=== PATIENT | male | born 1990 | race Two or more races ===

== ENCOUNTER 2022-12-31 01:38 | Emergency (ER) | payer OTHER ==
[~2022-12-31] VITALS: Ht 177.8 cm; Wt 97.5 kg
[2022-12-31 01:44] VITALS: BP 128/69; TEMP 98
[2022-12-31 02:17] VITALS: O2SAT 98
== END 2022-12-31 02:18 | disposition home or self-care (01) ==
LOC: ER 01:40
DX: F19.90 Other psychoactive substance use, unspecified, uncomplicated (principal); Z59.00 Homelessness unspecified

== ENCOUNTER 2024-10-22 03:30 | Emergency (ER) | payer OTHER ==
[~2024-10-22] VITALS: Ht 175.3 cm; Wt 90.7 kg
[2024-10-22 04:41] LABS: PLATELET COUNT (AUTO) 198 K/uL (150-450); RED BLOOD CELL COUNT(AUTO) 4.77 MIL/uL (4.5-6.0); RED CELL DISTRIBUTION WIDTH 18.6 % (11.5-15.0); WHITE BLOOD COUNT (AUTO) 16.7 K/uL (4.3-11.0)
[2024-10-22 04:42] LABS: APPEARANCE,URINE SLIGHTLY CLOUDY (CLEAR); BLOOD, URINE 3+ Ery/uL (NEGATIVE); LEUKOCYTE ESTERASE ,URINE 2+ (NEGATIVE); NITRITE, URINE NEGATIVE (NEGATIVE); UGLUCOSE NEGATIVE (NEGATIVE)
[2024-10-22 04:47] LABS: CALCIUM, SERUM 8.6 mg/dL (8.5-10.1); CREATININE 0.8 mg/dL (0.6-1.3); SODIUM SERUM 138 mmol/L (136-145); UREA NITROGEN, BLOOD 8 mg/dL (7-18)
[2024-10-22 04:52] LABS: ALCOHOL, BLOOD < 3 mg/dL (0-10); ASPARTATE AMINOTRANSFERASE 22 U/L (15-37); TOTAL PROTEIN, SERUM 7.8 g/dL (6.4-8.2)
[2024-10-22 04:56] LABS: BARBITURATE, URINE NEGATIVE (NEGATIVE); BENZODIAZEPINE, URINE NEGATIVE (NEGATIVE); CANNABINOID, URINE NEGATIVE (NEGATIVE); COCCAINE, URINE NEGATIVE (NEGATIVE); OPIATE, URINE NEGATIVE (NEGATIVE)
[2024-10-22 04:57] LABS: AMPHETAMINE, URINE POSITIVE (NEGATIVE)
[2024-10-22 05:06] LABS: ADD URINE CULTURE YES
[2024-10-22] MEDS ORDERED: POTASSIUM CHLORIDE 20 MEQ TAB.PRT.SR PO ONE (06:01)
[2024-10-22] MEDS ORDERED: CIPROFLOXACIN HCL 500 MG TABLET ONE (06:01)
[2024-10-22] MEDS: CIPROFLOXACIN HCL 500 MG TABLET PO ONE (06:05)
[2024-10-22] MEDS: POTASSIUM CHLORIDE 20 MEQ TAB.PRT.SR PO ONE (06:05)
[2024-10-22] MEDS ORDERED: OLANZAPINE 5 MG TABLET ONE (07:13)
[2024-10-22] MEDS: OLANZAPINE 5 MG TABLET PO ONE (07:16)
[2024-10-22] MEDS ORDERED: DOXY100C2 PO (21:57)
[2024-10-22] MEDS ORDERED: CEFTRIAXONE 500 MG VIAL ONE (22:17)
[2024-10-22] MEDS ORDERED: DOXYCYCLINE HYCLATE (100 MG) 100 MG TABLET ONE (22:18)
[2024-10-22] MEDS ORDERED: AZITHROMYCIN 250 MG TABLET ONE (22:18)
[2024-10-22] MEDS: AZITHROMYCIN 250 MG TABLET PO ONE (22:25)
[2024-10-22] MEDS: DOXYCYCLINE HYCLATE (100 MG) 100 MG TABLET PO ONE (22:25)
[2024-10-22] MEDS: CEFTRIAXONE 500 MG VIAL IM ONE (22:25)
[2024-10-22 23:38] VITALS: BP 123/58; TEMP 98.2; O2SAT 99
== END 2024-10-22 23:38 ==
LOC: ER 03:36
DX: R45.851 Suicidal ideations (principal); E87.6 Hypokalemia; F15.10 Other stimulant abuse, uncomplicated; N39.0 Urinary tract infection, site not specified; R44.3 Hallucinations, unspecified; F19.10 Other psychoactive substance abuse, uncomplicated; Z59.00 Homelessness unspecified; Z20.822 Contact with and (suspected) exposure to COVID-19
CPT/HCPCS: 99285; 96372; 76870; 85025; 80048; 87086; 80076; 81001; 36415; 87426; 80143; 80320; 80307; J0696; G0480